=== PATIENT | male | born 1980 | race African-American/Black ===

== ENCOUNTER 2016-06-04 18:22 | Emergency (ER) | payer OTHER ==
[2016-06-04 18:51] LABS: BASO % 0.4 % (0.0-1.0); EOS # 0.1 K/mm3 (0.0-0.50); EOS % 2.4 % (0.0-3.0); LARGE UNSTAINED CELL # 0.1 K/mm3 (0.0-0.4); LARGE UNSTAINED CELL % 2.4 % (0.0-4.0); LYMPH # 1.6 K/mm3 (1.5-4.5); LYMPH % 27.5 % (24.0-44.0); MEAN CORPUSCULAR HEMOGLOBIN 27.3 pg (27.0-33.0); MEAN CORPUSCULAR HGB CONC 32.2 g/dl (32.0-36.5); MEAN CORPUSCULAR VOLUME 84.6 fl (80.0-96.0); MONO # 0.3 K/mm3 (0.0-0.8); MONO % 4.6 % (0.0-5.0); NEUTROPHILS # 3.7 K/mm3 (1.8-7.7); NEUTROPHILS % 62.8 % (36.0-66.0); PLATELET COUNT, AUTOMATED 203 k/mm3 (150-450); RED CELL DISTRIBUTION WIDTH 12.7 % (11.5-14.5)
[2016-06-04 19:17] LABS: ANION GAP 5 MEQ/L (8-16); BLOOD UREA NITROGEN 11 MG/DL (7-18); CALCIUM LEVEL 8.8 MG/DL (8.5-10.1); CARBON DIOXIDE LEVEL 30 MEQ/L (21-32); CHLORIDE LEVEL 107 MEQ/L (98-107); CREATININE FOR GFR 0.95 MG/DL (0.70-1.30); GLOMERULAR FILTRATION RATE > 60.0 (>60); GLUCOSE, FASTING 80 MG/DL (70-105); POTASSIUM SERUM 3.9 MEQ/L (3.5-5.1); SODIUM LEVEL 142 MEQ/L (136-145)
[2016-06-04] MEDS ORDERED: ISOVUE-370 76% 100ML VIAL (Q9967) As Ordered ONE ×2 (21:44→21:46)
--- NOTE | 2016-06-04 23:00 | REPUSA ---
CLINICAL HISTORY: Chest pain. TECHNIQUE: CT chest with IV contrast. COMPARISON: No pertinent prior studies are available at this time. CT CHEST WITH CONTRAST: Pulmonary arteries: Patent, without emboli. Lungs: No pneumothorax, infiltrate, masses or effusion. Heart: Normal size. No significant effusion. Aorta: Normal caliber, without aneurysm or dissection. Mediastinum and baudilio: No lymphadenopathy. Bony thorax: No acute findings. Limited upper abdomen: No acute findings. IMPRESSION: No evidence of pulmonary embolism. No acute thoracic process.
--- NOTE | 2016-06-05 01:06 | ECGEPIP ---
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
--- NOTE | 2016-06-05 02:44 | EDDOCDS ---
Nurse's Notes [facility] Name: Vangie Warren Age: 35 yrs Sex: Male : 1980 Arrival Date: 06/04/2016 Time: 18:22 Bed OBSERVATION Private MD: Diagnosis: Chest pain, unspecified Presentation: 06/04 18:24 Presenting complaint: EMS states: Chest pain x 3 hours, reports pain is reproducible. ead RN at [facility] reported EKG changes, pt was given 750 mg Aspirin. 20 gauge to left AC per EMS. Pt now rating chest pain at 5/10. Initial chest pain was 7/10. Blood glucose of 63. 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 Adult Sepsis Screening: The patient does not have new or worsening altered mentation. Patient's respiratory rate is less than 22. Systolic blood pressure is greater than 100. Patient has a qSOFA score of 0- Negative Sepsis Screen. Suicide/Homicide risk assessment- the patient denies having any suicidal and/or homicidal ideations and does not present with any other emotional, behavioral or mental health complaints. 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 Transition of care: patient was not received from another setting of care. 18:24 Acuity: RUSSELL Level 3 ead 18:24 Method Of Arrival: Ambulance ead Triage Assessment: 18:32 General: Appears in no apparent distress, comfortable, Behavior is appropriate for age, ead cooperative. Pain: Location: chest Pain currently is 5 out of 10 on a pain scale. The patient is triaged at the bedside. See Assessment in Nurses Notes section of ED record. Neurological: No deficits noted. Neurological: Reports dizziness. Cardiovascular: Capillary refill < 3 seconds Chest pain is described as Pain is 5 out of 10 on a pain scale. radiates forehead. Respiratory: Airway is patent Respiratory effort is even, unlabored, Denies shortness of breath. Derm: Skin is dry, Skin is normal. 06/05 02:43 Cardiovascular: Chest pain episodes last > 5 minutes. jp6 02:43 Pt Declines HIV testing. jp6 02:43 Cardiovascular: Chest pain began 30 minutes prior to arrival. jp6 Historical: - Allergies: no known allergies; - Home Meds: 1. enalapril maleate 5 mg Oral tab once daily 2. hydrochlorothiazide 25 mg Oral tab once daily - PMHx: Hypertension; cardiomegaly; - Social history: Smoking status: Patient uses tobacco products, current every day smoker. No barriers to communication noted, The patient speaks fluent [place] Citizen, Speaks appropriately for age. - Family history: Not pertinent. - : The pt / caregiver states he / she is not on anticoagulants. Home medication list is obtained from the patient, the facility MAR. - Exposure Risk Screening:: None identified. Screenin/28 19:04 Screening information is obtained from the patient. Fall risk: No risks identified. jp6 Assistance ADL's: requires no assistance with activities of daily living. Abuse/DV Screen: The patient / caregiver reports he/she is: not in a situation that causes fear, pain or injury. Nutritional screening: No deficits noted. Advance Directives: Currently, there is no health care proxy. There is no active DNR order. There is no living will. home support is adequate. Assessment: 18:44 General: see triage assessment. ead 19:23 Reassessment: Patient appears in no apparent distress at this time. Patient denies pain jp6 at this time. Patient states feeling better. Patient states symptoms have improved. General: Appears in no apparent distress, comfortable, well developed, well nourished, Behavior is appropriate for age, cooperative, pleasant. Pain: Denies pain. Neurological: No deficits noted. Level of Consciousness is awake, alert, Oriented to person, place, time. EENT: No deficits noted. Cardiovascular: No deficits noted. Capillary refill < 3 seconds Heart tones S1 S2 present Rhythm is sinus rhythm No ectopy. Respiratory: No deficits noted. Airway is patent Respiratory effort is even, unlabored, Respiratory pattern is regular, symmetrical, Breath sounds are clear bilaterally. GI: No deficits noted. : No deficits noted. Derm: Skin is intact, Skin is dry, Skin is brown, Skin temperature is warm. Musculoskeletal: No deficits noted. 20:30 Reassessment: Patient appears in no apparent distress at this time. Pain: Denies pain. jp6 Neurological: Level of Consciousness is awake, alert, Oriented to person, place, time. Cardiovascular: Rhythm is sinus rhythm No ectopy. Respiratory: Airway is patent Respiratory effort is even, unlabored, Respiratory pattern is regular, symmetrical. Derm: Skin is brown. 21:30 Reassessment: Patient appears in no apparent distress at this time. Patient states jp6 symptoms have improved. Pain: Denies pain. 22:30 Reassessment: Patient appears in no apparent distress at this time. Pain: Denies pain. jp6 Neurological: No deficits noted. EENT: No deficits noted. Cardiovascular: No deficits noted. Rhythm is sinus rhythm No ectopy. Respiratory: Airway is patent Respiratory effort is even, unlabored, Respiratory pattern is regular, symmetrical. GI: No deficits noted. : No deficits noted. Derm: Skin is brown. Musculoskeletal: No deficits noted. 23:30 Reassessment: Patient appears in no apparent distress at this time. jp6 06/05 00:30 Reassessment: Patient appears in no apparent distress at this time. Patient states jp6 symptoms have improved. General: Appears in no apparent distress, comfortable, Behavior is appropriate for age, cooperative. Pain: Denies pain. Neurological: No deficits noted. EENT: No deficits noted. Cardiovascular: Rhythm is sinus rhythm No ectopy. Respiratory: Breath sounds are clear bilaterally. Derm: Skin is brown. 01:30 Reassessment: Patient states symptoms have improved. Cardiovascular: Rhythm is sinus [facility] rhythm No ectopy. Respiratory: Airway is patent Respiratory effort is even, unlabored, Respiratory pattern is regular, symmetrical. 02:30 Reassessment: pt is going back to [facility],reportcalled to angi George RN.. General: Appears in no apparent distress, comfortable. Pain: Denies pain. Neurological: No deficits noted. EENT: No deficits noted. Cardiovascular: Rhythm is sinus rhythm No ectopy. Respiratory: No deficits noted. Airway is patent Respiratory effort is even, unlabored, Respiratory pattern is regular, symmetrical. GI: No deficits noted. : No deficits noted. Derm: Skin is brown. Musculoskeletal: No deficits noted. Vital Signs: 06/04 18:32 BP 150 / 92; Pulse 52; Resp 14; Temp 97.1; Pulse Ox 97% on R/A; Weight 78.02 kg (R); ead Height 5 ft. 5 in. (165.10 cm) (R); Pain 5/10; 19:04 BP 149 / 93 (auto/); jp6 19:04 Pulse 50 MON; Pulse Ox 98% ; jp6 19:34 BP 151 / 95 (auto/); jp6 19:34 Pulse 48 MON; Pulse Ox 98% ; jp6 20:03 Pulse 54 MON; Pulse Ox 98% ; jp6 20:04 BP 145 / 86 (auto/); jp6 20:34 BP 148 / 89 (auto/); jp6 20:34 Pulse 52 MON; Pulse Ox 99% ; jp6 21:04 BP 148 / 89 (auto/); jp6 21:04 Pulse 52 MON; Pulse Ox 98% ; jp6 21:34 BP 157 / 94 (auto/); jp6 21:34 Pulse 52 MON; Pulse Ox 99% ; jp6 22:21 BP 125 / 98 (auto/); jp6 22:23 Pulse 64 MON; jp6 22:34 BP 152 / 96 (auto/); jp6 22:34 Pulse 66 MON; jp6 23:04 BP 149 / 89 (auto/); jp6 23:04 Pulse 64 MON; jp6 23:34 BP 155 / 100 (auto/); jp6 23:34 Pulse 76 MON; jp6 06/05 00:04 BP 150 / 87 (auto/); jp6 00:04 Pulse 68 MON; jp6 00:34 BP 128 / 77 (auto/); jp6 00:52 Pulse 54 MON; Pulse Ox 98% ; jp6 01:02 Pulse 70 MON; Pulse Ox 97% ; jp6 01:04 BP 140 / 88 (auto/); jp6 01:34 BP 150 / 71 (auto/); jp6 01:34 Pulse 76 MON; jp6 02:04 BP 138 / 77 (auto/); jp6 02:04 Pulse 66 MON; jp6 02:16 Pulse 60 MON; jp6 02:16 BP 128 / 77; Pulse 60; Resp 16; Temp 98.2(O); Pulse Ox 98% on R/A; Pain 0/10; jp6 06/04 18:32 Body Mass Index 28.62 (78.02 kg, 165.10 cm) ead Vitals: 06/04 18:22 Log In Time N/A - ambulance arrival. ead ED Course: 18:23 Patient visited by Dagmar Winter, Freight Loading Supervisor. deg 18:23 Patient moved to Waiting deg 18:24 Francesca Givens,RN is Primary Nurse. deg 18:24 Patient moved to 3 deg 18:24 Patient moved to 10 ead 18:29 Triage Initiated ead 18:36 Maintain field IV. Dressing intact. Good blood return noted. Site clean & dry. Gauge & ead site: 20 left AC. 18:38 EKG done. (by ED staff). Reviewed by Radha Harris MD. jrd 18:44 Patient visited by Francesca Givens,RN. ead 18:44 Basic Metabolic Profile Sent. ead 18:44 CBC with Diff Sent. ead 18:44 Cardiac Injury Profile Sent. ead 18:44 Troponin Sent. ead 18:52 Radha Harris MD is Attending Physician. br1 18:52 Patient visited by Alfonzo Rock PCA. jrd 18:58 Patient visited by Radha Harris MD. br1 19:04 The patient / caregiver is instructed regarding the plan of care and ED course. Cardiac jp6 monitor on. Pulse ox on. NIBP on. 20:06 Patient visited by Vicky Ramsay,RN. jp6 21:33 Patient visited by Vicky Ramsay,RN. jp6 22:51 Patient visited by Vicky Ramsay,LORE. jp6 22:58 [facility] [place] into [employer] and attached to record. zo 22:58 [facility] [place] into [employer] and attached to record. zo 23:03 Patient name changed from Vangie\S\\S\Hackshaw\S\ to Vangie\S\ \S\Hackshaw. EDMS 23:11 Patient moved to OBSERVATION br1 23:34 No procedures done that require assistance. jp6 23:37 CT Chest Angio R/O PE Returned. EDMS 06/05 00:08 Attending Physician role handed off by Radha Harris MD mm11 00:08 Carlitos Newman DO is Attending Physician. mm11 01:00 CARDIAC INJURY PROFILE Sent. jp6 01:00 TROPONIN Sent. jp6 01:17 ELECTROCARDIOGRAM ADULT Returned. EDMS 02:19 Your own Physician is Referral Physician. mm11 02:19 Reese Pinedo MD is Referral Physician. mm11 Administered Medications: 06/04 20:23 Drug: NS 0.9% 1000 ml [sodium chloride 0.9 % intravenous solution] Route: IV; Rate: 150 tm5 mL/hr; Site: left antecubital; Intake: 06/05 02:16 PO: 300.00ml; IV: 500.00ml; Total: 800.00ml. jp6 Output: 02:16 Urine: 3.00ml (Voided); Total: 3.00ml. jp6 Order Results: Lab Order: Basic Metabolic Profile; SPEC'M 06/04/16 18:43 Test: GLUCOSE, FASTING; Value: 80; Range: 70-105; Units: MG/DL; Status: F Test: BLOOD UREA NITROGEN; Value: 11; Range: 7-18; Units: MG/DL; Status: F Test: CREATININE FOR GFR; Value: 0.95; Range: 0.70-1.30; Units: MG/DL; Status: F Test: GLOMERULAR FILTRATION RATE; Value: > 60.0; Range: >60; Status: F Test: SODIUM LEVEL; Value: 142; Range: 136-145; Units: MEQ/L; Status: F Test: POTASSIUM SERUM; Value: 3.9; Range: 3.5-5.1; Units: MEQ/L; Status: F Test: CHLORIDE LEVEL; Value: 107; Range: 98-107; Units: MEQ/L; Status: F Test: CARBON DIOXIDE LEVEL; Value: 30; Range: 21-32; Units: MEQ/L; Status: F Test: ANION GAP; Value: 5; Range: 8-16; Abnormal: Below low normal; Units: MEQ/L; Status: F Test: CALCIUM LEVEL; Value: 8.8; Range: 8.5-10.1; Units: MG/DL; Status: F Test Note: ; Units are mL/min/1.73 m2 Chronic Kidney Disease Staging per NKF: Stage I & II GFR >=60 Normal to Mildly Decreased Stage III GFR 30-59 Moderately Decreased Stage IV GFR 15-29 Severely Decreased Stage V GFR <15 Very Little GFR Left ESRD GFR <[address] Lab Order: CBC with Diff; SPEC'M 06/04/16 18:43 Test: WHITE BLOOD COUNT; Value: 6.0; Range: 4.0-10.0; Units: K/mm3; Status: F Test: RED BLOOD COUNT; Value: 4.84; Range: 4.30-6.10; Units: M/mm3; Status: F Test: HEMOGLOBIN; Value: 13.2; Range: 14.0-18.0; Abnormal: Below low normal; Units: g/dl; Status: F Test: HEMATOCRIT; Value: 41.0; Range: 42.0-52.0; Abnormal: Below low normal; Units: %; Status: F Test: MEAN CORPUSCULAR VOLUME; Value: 84.6; Range: 80.0-96.0; Units: fl; Status: F Test: MEAN CORPUSCULAR HEMOGLOBIN; Value: 27.3; Range: 27.0-33.0; Units: pg; Status: F Test: MEAN CORPUSCULAR HGB CONC; Value: 32.2; Range: 32.0-36.5; Units: g/dl; Status: F Test: RED CELL DISTRIBUTION WIDTH; Value: 12.7; Range: 11.5-14.5; Units: %; Status: F Test: PLATELET COUNT, AUTOMATED; Value: 203; Range: 150-450; Units: k/mm3; Status: F Test: NEUTROPHILS %; Value: 62.8; Range: 36.0-66.0; Units: %; Status: F Test: LYMPH %; Value: 27.5; Range: 24.0-44.0; Units: %; Status: F Test: MONO %; Value: 4.6; Range: 0.0-5.0; Units: %; Status: F Test: EOS %; Value: 2.4; Range: 0.0-3.0; Units: %; Status: F Test: BASO %; Value: 0.4; Range: 0.0-1.0; Units: %; Status: F Test: LARGE UNSTAINED CELL %; Value: 2.4; Range: 0.0-4.0; Units: %; Status: F Test: NEUTROPHILS #; Value: 3.7; Range: 1.8-7.7; Units: K/mm3; Status: F Test: LYMPH #; Value: 1.6; Range: 1.5-4.5; Units: K/mm3; Status: F Test: MONO #; Value: 0.3; Range: 0.0-0.8; Units: K/mm3; Status: F Test: EOS #; Value: 0.1; Range: 0.0-0.50; Units: K/mm3; Status: F Test: BASO #; Value: 0.0; Range: 0.0-0.2; Units: K/mm3; Status: F Test: LARGE UNSTAINED CELL #; Value: 0.1; Range: 0.0-0.4; Units: K/mm3; Status: F Lab Order: Cardiac Injury Profile; [facility] 06/04/16 18:43 Test: CPK CREATINE PHOSPHOKINASE; Value: 348; Range: 39-308; Abnormal: Above high normal; Units: U/L; Status: F Test: CK-MB VALUE MASS; Value: 6.1; Range: 0.0-3.6; Abnormal: Above high normal; Units: NG/ML; Status: F Test: MB/CK RELATIVE INDEX; Value: 1.75; Range: < OR =4; Status: F Test Note: ; DIAGNOSIS CRITERIA MMB ng/ml Relative Index (RI) NON-AMI < or = 5 N/A [place] > 5 < or = 4 AMI > 5 > 4 Lab Order: Troponin; [facility] 06/04/16 18:43 Test: TROPONIN I; Value: < 0.02; Range: < 0.10; Units: NG/ML; Status: F Test Note: ; Troponin I Reference Interval for [employer] LOCI: 99th Percentile= 0.00-0.045 ng/ml Risk Stratification: <= 0.10 ng/ml Decreased Risk for Adverse Clinical Events. 0.10-1.50 ng/ml Increased Risk for Adverse Clinical Events. Evaluation of additional criterion and/or repeat testing in 2-6 hours is suggested to rule out myocardial damage. >= 1.50 ng/ml Indicative of Myocardial Injury. Lab Order: TROPONIN; [facility] 06/05/16 00:53 Test: TROPONIN I; Value: < 0.02; Range: < 0.10; Units: NG/ML; Status: F Test Note: ; Troponin I Reference Interval for [employer] LOCI: 99th Percentile= 0.00-0.045 ng/ml Risk Stratification: <= 0.10 ng/ml Decreased Risk for Adverse Clinical Events. 0.10-1.50 ng/ml Increased Risk for Adverse Clinical Events. Evaluation of additional criterion and/or repeat testing in 2-6 hours is suggested to rule out myocardial damage. >= 1.50 ng/ml Indicative of Myocardial Injury. Lab Order: CARDIAC INJURY PROFILE; SPEC'M 06/05/16 00:53 Test: CPK CREATINE PHOSPHOKINASE; Value: 316; Range: 39-308; Abnormal: Above high normal; Units: U/L; Status: F Test: CK-MB VALUE MASS; Value: 4.9; Range: 0.0-3.6; Abnormal: Above high normal; Units: NG/ML; Status: F Test: MB/CK RELATIVE INDEX; Value: 1.55; Range: < OR =4; Status: F Test Note: ; DIAGNOSIS CRITERIA MMB ng/ml Relative Index (RI) NON-AMI < or = 5 N/A [place] > 5 < or = 4 AMI > 5 > 4 Radiology Order: CT Chest Angio R/O PE Test: CT Chest Angio R/O PE REASON FOR EXAMINATION: Chest Pain; ; CLINICAL HISTORY: Chest pain.; ; TECHNIQUE: CT chest with IV contrast.; ; COMPARISON: No pertinent prior studies are available at this time.; ; CT CHEST WITH CONTRAST:; Pulmonary arteries: Patent, without emboli.; Lungs: No pneumothorax, infiltrate, masses or effusion.; Heart: Normal size. No significant effusion.; Aorta: Normal caliber, without aneurysm or dissection.; Mediastinum and baudilio: No lymphadenopathy.; Bony thorax: No acute findings.; Limited upper abdomen: No acute findings.; IMPRESSION: No evidence of pulmonary embolism. 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 No cognitive and/or jp6 functional deficits noted. Patient verbalized understanding of disposition instructions. patient administered narcotics - no. The following High Risk Discharge criteria are identified: None. Discharged to [facility]. Condition: stable Condition: improved. Discharge instructions given to Doris TORREZ at facility. CT Study completed. Property :Personal belongings accompany Pt. 02:19 Discharge ordered by Provider. mm11 02:43 Patient left the ED. jp6 Signatures: Dispatcher [employer] EDMS Dagmar Winter, Freight Loading Supervisor Unit deg Darline Moeller Matthew, DO DO mm11 Radha Harris MD MD br1 Francesca Givens,RN RN Alfonzo Lopez PCA DETECTIVE AUTOMOBILE SECTION Vicky Odell,RN RN jp6 Michelle Sharif,RN RN tm5 GARDENIAD
--- NOTE | 2016-06-05 02:44 | EDDOCDS ---
Physician Documentation [facility] Name: Jake Butler Age: 35 yrs Sex: Male : 1980 Arrival Date: 06/04/2016 Time: 18:22 Bed OBSERVATION Private MD: Disposition: 06/05/16 02:19 Discharged to Home/Self Care. Impression: Chest pain, unspecified. - Condition is Stable. - Discharge Instructions: Nonspecific Chest Pain. - Medication Reconciliation, Local Pharmacy Hours form. - Follow up: Your own Physician; When: 2 - 3 days; Reason: Recheck today's complaints. Follow up: Reese Pinedo; When: 2 - 3 days; Reason: Recheck today's complaints. - Problem is an acute exacerbation. - Symptoms are resolved. - Notes: You were seen in the ED for chest pain. Bloodwork along with EKG of the heart, chest Xray, CT scan of the chest, and cardiac monitoring showed no acute findings. As you are feeling better you may return to the correctional facility to see your physician within 1-2 days for follow up and will also need to follow up with cardiology - please call to arrange to be seen.
Return to the ED for any return of chest pain, trouble breathing, lightheadedness, loss of consciousness or any other concerns. Historical: - Allergies: no known allergies; - Home Meds: 1. enalapril maleate 5 mg Oral tab once daily 2. hydrochlorothiazide 25 mg Oral tab once daily - PMHx: Hypertension; cardiomegaly; - Social history: Smoking status: Patient uses tobacco products, current every day smoker. No barriers to communication noted, The patient speaks fluent Estonian, Speaks appropriately for age. - Family history: Not pertinent. - : The pt / caregiver states he / she is not on anticoagulants. Home medication list is obtained from the patient, the facility MAR. - Exposure Risk Screening:: None identified. Vital Signs: 06/04 18:32 BP 150 / 92; Pulse 52; Resp 14; Temp 97.1; Pulse Ox 97% on R/A; Weight 78.02 kg / 172 ead lbs (R); Height 5 ft. 5 in. (165.10 cm) (R); Pain 5/10; 19:04 BP 149 / 93 (auto/); jp6 19:04 Pulse 50 MON; Pulse Ox 98% ; jp6 19:34 BP 151 / 95 (auto/); jp6 19:34 Pulse 48 MON; Pulse Ox 98% ; jp6 20:03 Pulse 54 MON; Pulse Ox 98% ; jp6 20:04 BP 145 / 86 (auto/); jp6 20:34 BP 148 / 89 (auto/); jp6 20:34 Pulse 52 MON; Pulse Ox 99% ; jp6 21:04 BP 148 / 89 (auto/); jp6 21:04 Pulse 52 MON; Pulse Ox 98% ; jp6 21:34 BP 157 / 94 (auto/); jp6 21:34 Pulse 52 MON; Pulse Ox 99% ; jp6 22:21 BP 125 / 98 (auto/); jp6 22:23 Pulse 64 MON; jp6 22:34 BP 152 / 96 (auto/); jp6 22:34 Pulse 66 MON; jp6 23:04 BP 149 / 89 (auto/); jp6 23:04 Pulse 64 MON; jp6 23:34 BP 155 / 100 (auto/); jp6 23:34 Pulse 76 MON; jp6 06/05 00:04 BP 150 / 87 (auto/); jp6 00:04 Pulse 68 MON; jp6 00:34 BP 128 / 77 (auto/); jp6 00:52 Pulse 54 MON; Pulse Ox 98% ; jp6 01:02 Pulse 70 MON; Pulse Ox 97% ; jp6 01:04 BP 140 / 88 (auto/); jp6 01:34 BP 150 / 71 (auto/); jp6 01:34 Pulse 76 MON; jp6 02:04 BP 138 / 77 (auto/); jp6 02:04 Pulse 66 MON; jp6 02:16 Pulse 60 MON; jp6 02:16 BP 128 / 77; Pulse 60; Resp 16; Temp 98.2(O); Pulse Ox 98% on R/A; Pain 0/10; jp6 06/04 18:32 Body Mass Index 28.62 (78.02 kg, 165.10 cm) ead MDM: 06/04 18:33 ECG WITH READING ER PHYS+CARDIAG ordered. EDMS 18:36 Financial Management Analyst/Pulse Ox/q 30 min VS ordered. br1 18:36 IV Saline Lock ordered. br1 18:36 Rhythm Strip to chart ordered. br1 18:36 Undress patient appropriately for examination ordered. br1 18:37 Basic Metabolic Profile Ordered. EDMS 18:37 CBC with Diff Ordered. EDMS 18:37 Cardiac Injury Profile Ordered. EDMS 18:37 Troponin Ordered. EDMS 18:41 Chest, 1 View Ordered. EDMS 19:13 CBC with Diff Reviewed. br1 19:36 Basic Metabolic Profile Reviewed. br1 19:36 Cardiac Injury Profile Reviewed. br1 19:36 Troponin Reviewed. br1 19:40 NS 0.9% 1000 ml IV at 150 mL/hr continuous ordered. br1 19:41 CT Chest Angio R/O PE Ordered. EDMS 22:43 Financial registration complete. zo 22:58 [facility] Payment Agreement was scanned into [employer] and attached to record. zo 22:58 [facility] Payment Agreement was scanned into [employer] and attached to record. zo 23:03 Repeat EKG (put time details section) ordered. br1 23:03 Redraw CIP &Troponin (put time in details section) ordered. br1 23:08 Misc. Nursing Order ordered. br1 06/05 00:13 Redraw CIP &Troponin (put time in details section) complete. jlm 00:13 Repeat EKG (put time details section) complete. jlm 00:14 ELECTROCARDIOGRAM ADULT ordered. EDMS 00:14 TROPONIN Ordered. EDMS 00:14 CARDIAC INJURY PROFILE Ordered. EDMS 02:07 CARDIAC INJURY PROFILE Reviewed. mm11 02:07 TROPONIN Reviewed. mm11 02:07 CT Chest Angio R/O PE Reviewed. mm11 02:07 ELECTROCARDIOGRAM ADULT Reviewed. mm11 Administered Medications: 06/04 20:23 Drug: NS 0.9% 1000 ml [sodium chloride 0.9 % intravenous solution] Route: IV; Rate: 150 tm5 mL/hr; Site: left antecubital; Signatures: Dispatcher [employer] EDMS Darline Moeller Matthew, DO DO mm11 Chema Harris MD MD br1 Francesca Givens,RN RN Avelina Nicole, Instrument Technologist Unit Vicky Armando RN RN jp6 Michelle Sharif RN tm5 The chart was reviewed and I authenticate all verbal orders and agree with the evaluation and treatment provided.Attachments: 22:58 [facility] Payment Agreement zo MTDD
--- NOTE | 2016-06-05 15:43 | ECGEPIP ---
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
--- NOTE | 2016-06-06 11:13 | REP ---
Portable chest, single AP view, patient sitting: There are no comparisons. The lung pate are clear. Cardiac size appears enlarged, however there has magnification from portable positioning. The baudilio, mediastinum, and bony thorax are unremarkable. Impression: The cardiac size appears enlarged. The lung pate are clear. Signed by Julien Renteria MD 06/05/2016 11:13 A
--- NOTE | 2016-06-07 03:44 | EDDOCDS ---
Physician Documentation [facility] Name: Jake Butler Age: 35 yrs Sex: Male : 1980 Arrival Date: 06/04/2016 Time: 18:22 Bed OBSERVATION Private MD: Disposition: 06/05/16 02:19 Discharged to Home/Self Care. Impression: Chest pain, unspecified. - Condition is Stable. - Discharge Instructions: Nonspecific Chest Pain. - Medication Reconciliation, Local Pharmacy Hours form. - Follow up: Your own Physician; When: 2 - 3 days; Reason: Recheck today's complaints. Follow up: Reese Pinedo; When: 2 - 3 days; Reason: Recheck today's complaints. - Problem is an acute exacerbation. - Symptoms are resolved. - Notes: You were seen in the ED for chest pain. Bloodwork along with EKG of the heart, chest Xray, CT scan of the chest, and cardiac monitoring showed no acute findings. As you are feeling better you may return to the correctional facility to see your physician within 1-2 days for follow up and will also need to follow up with cardiology - please call to arrange to be seen.
Return to the ED for any return of chest pain, trouble breathing, lightheadedness, loss of consciousness or any other concerns. Historical: - Allergies: no known allergies; - Home Meds: 1. enalapril maleate 5 mg Oral tab once daily 2. hydrochlorothiazide 25 mg Oral tab once daily - PMHx: Hypertension; cardiomegaly; - Social history: Smoking status: Patient uses tobacco products, current every day smoker. No barriers to communication noted, The patient speaks fluent Tajik, Speaks appropriately for age. - Family history: Not pertinent. - : The pt / caregiver states he / she is not on anticoagulants. Home medication list is obtained from the patient, the facility MAR. - Exposure Risk Screening:: None identified. Vital Signs: 06/04 18:32 BP 150 / 92; Pulse 52; Resp 14; Temp 97.1; Pulse Ox 97% on R/A; Weight 78.02 kg / 172 ead lbs (R); Height 5 ft. 5 in. (165.10 cm) (R); Pain 5/10; 19:04 BP 149 / 93 (auto/); jp6 19:04 Pulse 50 MON; Pulse Ox 98% ; jp6 19:34 BP 151 / 95 (auto/); jp6 19:34 Pulse 48 MON; Pulse Ox 98% ; jp6 20:03 Pulse 54 MON; Pulse Ox 98% ; jp6 20:04 BP 145 / 86 (auto/); jp6 20:34 BP 148 / 89 (auto/); jp6 20:34 Pulse 52 MON; Pulse Ox 99% ; jp6 21:04 BP 148 / 89 (auto/); jp6 21:04 Pulse 52 MON; Pulse Ox 98% ; jp6 21:34 BP 157 / 94 (auto/); jp6 21:34 Pulse 52 MON; Pulse Ox 99% ; jp6 22:21 BP 125 / 98 (auto/); jp6 22:23 Pulse 64 MON; jp6 22:34 BP 152 / 96 (auto/); jp6 22:34 Pulse 66 MON; jp6 23:04 BP 149 / 89 (auto/); jp6 23:04 Pulse 64 MON; jp6 23:34 BP 155 / 100 (auto/); jp6 23:34 Pulse 76 MON; jp6 06/05 00:04 BP 150 / 87 (auto/); jp6 00:04 Pulse 68 MON; jp6 00:34 BP 128 / 77 (auto/); jp6 00:52 Pulse 54 MON; Pulse Ox 98% ; jp6 01:02 Pulse 70 MON; Pulse Ox 97% ; jp6 01:04 BP 140 / 88 (auto/); jp6 01:34 BP 150 / 71 (auto/); jp6 01:34 Pulse 76 MON; jp6 02:04 BP 138 / 77 (auto/); jp6 02:04 Pulse 66 MON; jp6 02:16 Pulse 60 MON; jp6 02:16 BP 128 / 77; Pulse 60; Resp 16; Temp 98.2(O); Pulse Ox 98% on R/A; Pain 0/10; jp6 06/04 18:32 Body Mass Index 28.62 (78.02 kg, 165.10 cm) ead MDM: 06/04 18:33 ECG WITH READING ER PHYS+CARDIAG ordered. EDMS 18:36 Counter Person/Pulse Ox/q 30 min VS ordered. br1 18:36 IV Saline Lock ordered. br1 18:36 Rhythm Strip to chart ordered. br1 18:36 Undress patient appropriately for examination ordered. br1 18:37 Basic Metabolic Profile Ordered. EDMS 18:37 CBC with Diff Ordered. EDMS 18:37 Cardiac Injury Profile Ordered. EDMS 18:37 Troponin Ordered. EDMS 18:41 Chest, 1 View Ordered. EDMS 19:13 CBC with Diff Reviewed. br1 19:36 Basic Metabolic Profile Reviewed. br1 19:36 Cardiac Injury Profile Reviewed. br1 19:36 Troponin Reviewed. br1 19:40 NS 0.9% 1000 ml IV at 150 mL/hr continuous ordered. br1 19:41 CT Chest Angio R/O PE Ordered. EDMS 22:43 Financial registration complete. zo 22:58 [facility] Payment Agreement was scanned into [employer] and attached to record. zo 22:58 [facility] Payment Agreement was scanned into [employer] and attached to record. zo 23:03 Repeat EKG (put time details section) ordered. br1 23:03 Redraw CIP &Troponin (put time in details section) ordered. br1 23:08 Misc. Nursing Order ordered. br1 06/05 00:13 Redraw CIP &Troponin (put time in details section) complete. jlm 00:13 Repeat EKG (put time details section) complete. jlm 00:14 ELECTROCARDIOGRAM ADULT ordered. EDMS 00:14 TROPONIN Ordered. EDMS 00:14 CARDIAC INJURY PROFILE Ordered. EDMS 02:07 CARDIAC INJURY PROFILE Reviewed. mm11 02:07 TROPONIN Reviewed. mm11 02:07 CT Chest Angio R/O PE Reviewed. mm11 02:07 ELECTROCARDIOGRAM ADULT Reviewed. mm11 19:43 Radiology Report was scanned into [employer] and attached to record. kf3 19:44 ECG/EKG was scanned into [employer] and attached to record. kf3 19:45 Trend VS was scanned into [employer] and attached to record. kf3 20:22 T-Sheet-- Draft Copy was scanned into [employer] and attached to record. klr Administered Medications: 06/04 20:23 Drug: NS 0.9% 1000 ml [sodium chloride 0.9 % intravenous solution] Route: IV; Rate: 150 tm5 mL/hr; Site: left antecubital; Signatures: Dispatcher [employer] EDMS Darline Moeller Matthew, DO DO mm11 Anatoly Moses, Reg Reg kf3 Chema Harris MD MD br1 Francesca GivensRN RN Avelina Nicole, Pain Management Physician Unit Vicky Armando RN RN jp6 Yudi Jose Tonya RN tm5 The chart was reviewed and I authenticate all verbal orders and agree with the evaluation and treatment provided.Attachments: 22:58 [facility] [place] Payment Agreement zo 19:44 ECG/EKG kf3 20:22 T-Sheet-- Draft Copy klr Chart Complete MTDD
--- NOTE | 2016-06-07 03:44 | EDDOCDS ---
Physician Documentation [facility] Name: Jake Butler Age: 35 yrs Sex: Male : 1980 Arrival Date: 06/04/2016 Time: 18:22 Bed OBSERVATION Private MD: Disposition: 06/05/16 02:19 Discharged to Home/Self Care. Impression: Chest pain, unspecified. - Condition is Stable. - Discharge Instructions: Nonspecific Chest Pain. - Medication Reconciliation, Local Pharmacy Hours form. - Follow up: Your own Physician; When: 2 - 3 days; Reason: Recheck today's complaints. Follow up: Reese Pinedo; When: 2 - 3 days; Reason: Recheck today's complaints. - Problem is an acute exacerbation. - Symptoms are resolved. - Notes: You were seen in the ED for chest pain. Bloodwork along with EKG of the heart, chest Xray, CT scan of the chest, and cardiac monitoring showed no acute findings. As you are feeling better you may return to the correctional facility to see your physician within 1-2 days for follow up and will also need to follow up with cardiology - please call to arrange to be seen.
Return to the ED for any return of chest pain, trouble breathing, lightheadedness, loss of consciousness or any other concerns. Historical: - Allergies: no known allergies; - Home Meds: 1. enalapril maleate 5 mg Oral tab once daily 2. hydrochlorothiazide 25 mg Oral tab once daily - PMHx: Hypertension; cardiomegaly; - Social history: Smoking status: Patient uses tobacco products, current every day smoker. No barriers to communication noted, The patient speaks fluent Wolof, Speaks appropriately for age. - Family history: Not pertinent. - : The pt / caregiver states he / she is not on anticoagulants. Home medication list is obtained from the patient, the facility MAR. - Exposure Risk Screening:: None identified. Vital Signs: 06/04 18:32 BP 150 / 92; Pulse 52; Resp 14; Temp 97.1; Pulse Ox 97% on R/A; Weight 78.02 kg / 172 ead lbs (R); Height 5 ft. 5 in. (165.10 cm) (R); Pain 5/10; 19:04 BP 149 / 93 (auto/); jp6 19:04 Pulse 50 MON; Pulse Ox 98% ; jp6 19:34 BP 151 / 95 (auto/); jp6 19:34 Pulse 48 MON; Pulse Ox 98% ; jp6 20:03 Pulse 54 MON; Pulse Ox 98% ; jp6 20:04 BP 145 / 86 (auto/); jp6 20:34 BP 148 / 89 (auto/); jp6 20:34 Pulse 52 MON; Pulse Ox 99% ; jp6 21:04 BP 148 / 89 (auto/); jp6 21:04 Pulse 52 MON; Pulse Ox 98% ; jp6 21:34 BP 157 / 94 (auto/); jp6 21:34 Pulse 52 MON; Pulse Ox 99% ; jp6 22:21 BP 125 / 98 (auto/); jp6 22:23 Pulse 64 MON; jp6 22:34 BP 152 / 96 (auto/); jp6 22:34 Pulse 66 MON; jp6 23:04 BP 149 / 89 (auto/); jp6 23:04 Pulse 64 MON; jp6 23:34 BP 155 / 100 (auto/); jp6 23:34 Pulse 76 MON; jp6 06/05 00:04 BP 150 / 87 (auto/); jp6 00:04 Pulse 68 MON; jp6 00:34 BP 128 / 77 (auto/); jp6 00:52 Pulse 54 MON; Pulse Ox 98% ; jp6 01:02 Pulse 70 MON; Pulse Ox 97% ; jp6 01:04 BP 140 / 88 (auto/); jp6 01:34 BP 150 / 71 (auto/); jp6 01:34 Pulse 76 MON; jp6 02:04 BP 138 / 77 (auto/); jp6 02:04 Pulse 66 MON; jp6 02:16 Pulse 60 MON; jp6 02:16 BP 128 / 77; Pulse 60; Resp 16; Temp 98.2(O); Pulse Ox 98% on R/A; Pain 0/10; jp6 06/04 18:32 Body Mass Index 28.62 (78.02 kg, 165.10 cm) ead MDM: 06/04 18:33 ECG WITH READING ER PHYS+CARDIAG ordered. EDMS 18:36 Operations Technician/Pulse Ox/q 30 min VS ordered. br1 18:36 IV Saline Lock ordered. br1 18:36 Rhythm Strip to chart ordered. br1 18:36 Undress patient appropriately for examination ordered. br1 18:37 Basic Metabolic Profile Ordered. EDMS 18:37 CBC with Diff Ordered. EDMS 18:37 Cardiac Injury Profile Ordered. EDMS 18:37 Troponin Ordered. EDMS 18:41 Chest, 1 View Ordered. EDMS 19:13 CBC with Diff Reviewed. br1 19:36 Basic Metabolic Profile Reviewed. br1 19:36 Cardiac Injury Profile Reviewed. br1 19:36 Troponin Reviewed. br1 19:40 NS 0.9% 1000 ml IV at 150 mL/hr continuous ordered. br1 19:41 CT Chest Angio R/O PE Ordered. EDMS 22:43 Financial registration complete. zo 22:58 [facility] Payment Agreement was scanned into [employer] and attached to record. zo 22:58 [facility] Payment Agreement was scanned into [employer] and attached to record. zo 23:03 Repeat EKG (put time details section) ordered. br1 23:03 Redraw CIP &Troponin (put time in details section) ordered. br1 23:08 Misc. Nursing Order ordered. br1 06/05 00:13 Redraw CIP &Troponin (put time in details section) complete. jlm 00:13 Repeat EKG (put time details section) complete. jlm 00:14 ELECTROCARDIOGRAM ADULT ordered. EDMS 00:14 TROPONIN Ordered. EDMS 00:14 CARDIAC INJURY PROFILE Ordered. EDMS 02:07 CARDIAC INJURY PROFILE Reviewed. mm11 02:07 TROPONIN Reviewed. mm11 02:07 CT Chest Angio R/O PE Reviewed. mm11 02:07 ELECTROCARDIOGRAM ADULT Reviewed. mm11 19:43 Radiology Report was scanned into [employer] and attached to record. kf3 19:44 ECG/EKG was scanned into [employer] and attached to record. kf3 19:45 Trend VS was scanned into [employer] and attached to record. kf3 20:22 T-Sheet-- Draft Copy was scanned into [employer] and attached to record. klr Administered Medications: 06/04 20:23 Drug: NS 0.9% 1000 ml [sodium chloride 0.9 % intravenous solution] Route: IV; Rate: 150 tm5 mL/hr; Site: left antecubital; Signatures: Dispatcher [employer] EDMS Darline Moeller Matthew, DO DO mm11 Anatoly Moses, Reg Reg kf3 Chema Harris MD MD br1 Francesca GivensRN RN Avelina Nicole, Volcanologist Unit Vicky Armando RN RN jp6 Yudi Jose Tonya RN tm5 The chart was reviewed and I authenticate all verbal orders and agree with the evaluation and treatment provided.Attachments: 22:58 [facility] [place] Payment Agreement zo 19:44 ECG/EKG kf3 20:22 T-Sheet-- Draft Copy klr Chart Complete MTDD
--- NOTE | 2016-06-07 03:44 | EDDOCDS ---
Nurse's Notes [facility] Name: Vangie Warren Age: 35 yrs Sex: Male : 1980 Arrival Date: 06/04/2016 Time: 18:22 Bed OBSERVATION Private MD: Diagnosis: Chest pain, unspecified Presentation: 06/04 18:24 Presenting complaint: EMS states: Chest pain x 3 hours, reports pain is reproducible. ead RN at [facility] reported EKG changes, pt was given 750 mg Aspirin. 20 gauge to left AC per EMS. Pt now rating chest pain at 5/10. Initial chest pain was 7/10. Blood glucose of 63. 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 Adult Sepsis Screening: The patient does not have new or worsening altered mentation. Patient's respiratory rate is less than 22. Systolic blood pressure is greater than 100. Patient has a qSOFA score of 0- Negative Sepsis Screen. Suicide/Homicide risk assessment- the patient denies having any suicidal and/or homicidal ideations and does not present with any other emotional, behavioral or mental health complaints. Status: Patient is not a rehabilitation services director or dependent. Transition of care: patient was not received from another setting of care. 18:24 Acuity: RUSSELL Level 3 ead 18:24 Method Of Arrival: Ambulance ead Triage Assessment: 18:32 General: Appears in no apparent distress, comfortable, Behavior is appropriate for age, ead cooperative. Pain: Location: chest Pain currently is 5 out of 10 on a pain scale. The patient is triaged at the bedside. See Assessment in Nurses Notes section of ED record. Neurological: No deficits noted. Neurological: Reports dizziness. Cardiovascular: Capillary refill < 3 seconds Chest pain is described as Pain is 5 out of 10 on a pain scale. radiates forehead. Respiratory: Airway is patent Respiratory effort is even, unlabored, Denies shortness of breath. Derm: Skin is dry, Skin is normal. 06/05 02:43 Cardiovascular: Chest pain episodes last > 5 minutes. jp6 02:43 Pt Declines HIV testing. jp6 02:43 Cardiovascular: Chest pain began 30 minutes prior to arrival. jp6 Historical: - Allergies: no known allergies; - Home Meds: 1. enalapril maleate 5 mg Oral tab once daily 2. hydrochlorothiazide 25 mg Oral tab once daily - PMHx: Hypertension; cardiomegaly; - Social history: Smoking status: Patient uses tobacco products, current every day smoker. No barriers to communication noted, The patient speaks fluent Croatian, Speaks appropriately for age. - Family history: Not pertinent. - : The pt / caregiver states he / she is not on anticoagulants. Home medication list is obtained from the patient, the facility MAR. - Exposure Risk Screening:: None identified. Screenin/28 19:04 Screening information is obtained from the patient. Fall risk: No risks identified. jp6 Assistance ADL's: requires no assistance with activities of daily living. Abuse/DV Screen: The patient / caregiver reports he/she is: not in a situation that causes fear, pain or injury. Nutritional screening: No deficits noted. Advance Directives: Currently, there is no health care proxy. There is no active DNR order. There is no living will. home support is adequate. Assessment: 18:44 General: see triage assessment. ead 19:23 Reassessment: Patient appears in no apparent distress at this time. Patient denies pain jp6 at this time. Patient states feeling better. Patient states symptoms have improved. General: Appears in no apparent distress, comfortable, well developed, well nourished, Behavior is appropriate for age, cooperative, pleasant. Pain: Denies pain. Neurological: No deficits noted. Level of Consciousness is awake, alert, Oriented to person, place, time. EENT: No deficits noted. Cardiovascular: No deficits noted. Capillary refill < 3 seconds Heart tones S1 S2 present Rhythm is sinus rhythm No ectopy. Respiratory: No deficits noted. Airway is patent Respiratory effort is even, unlabored, Respiratory pattern is regular, symmetrical, Breath sounds are clear bilaterally. GI: No deficits noted. : No deficits noted. Derm: Skin is intact, Skin is dry, Skin is brown, Skin temperature is warm. Musculoskeletal: No deficits noted. 20:30 Reassessment: Patient appears in no apparent distress at this time. Pain: Denies pain. jp6 Neurological: Level of Consciousness is awake, alert, Oriented to person, place, time. Cardiovascular: Rhythm is sinus rhythm No ectopy. Respiratory: Airway is patent Respiratory effort is even, unlabored, Respiratory pattern is regular, symmetrical. Derm: Skin is brown. 21:30 Reassessment: Patient appears in no apparent distress at this time. Patient states jp6 symptoms have improved. Pain: Denies pain. 22:30 Reassessment: Patient appears in no apparent distress at this time. Pain: Denies pain. jp6 Neurological: No deficits noted. EENT: No deficits noted. Cardiovascular: No deficits noted. Rhythm is sinus rhythm No ectopy. Respiratory: Airway is patent Respiratory effort is even, unlabored, Respiratory pattern is regular, symmetrical. GI: No deficits noted. : No deficits noted. Derm: Skin is brown. Musculoskeletal: No deficits noted. 23:30 Reassessment: Patient appears in no apparent distress at this time. jp6 06/05 00:30 Reassessment: Patient appears in no apparent distress at this time. Patient states jp6 symptoms have improved. General: Appears in no apparent distress, comfortable, Behavior is appropriate for age, cooperative. Pain: Denies pain. Neurological: No deficits noted. EENT: No deficits noted. Cardiovascular: Rhythm is sinus rhythm No ectopy. Respiratory: Breath sounds are clear bilaterally. Derm: Skin is brown. 01:30 Reassessment: Patient states symptoms have improved. Cardiovascular: Rhythm is sinus [facility] rhythm No ectopy. Respiratory: Airway is patent Respiratory effort is even, unlabored, Respiratory pattern is regular, symmetrical. 02:30 Reassessment: pt is going back to [facility],reportcalled to angi George RN.. General: Appears in no apparent distress, comfortable. Pain: Denies pain. Neurological: No deficits noted. EENT: No deficits noted. Cardiovascular: Rhythm is sinus rhythm No ectopy. Respiratory: No deficits noted. Airway is patent Respiratory effort is even, unlabored, Respiratory pattern is regular, symmetrical. GI: No deficits noted. : No deficits noted. Derm: Skin is brown. Musculoskeletal: No deficits noted. Vital Signs: 06/04 18:32 BP 150 / 92; Pulse 52; Resp 14; Temp 97.1; Pulse Ox 97% on R/A; Weight 78.02 kg (R); ead Height 5 ft. 5 in. (165.10 cm) (R); Pain 5/10; 19:04 BP 149 / 93 (auto/); jp6 19:04 Pulse 50 MON; Pulse Ox 98% ; jp6 19:34 BP 151 / 95 (auto/); jp6 19:34 Pulse 48 MON; Pulse Ox 98% ; jp6 20:03 Pulse 54 MON; Pulse Ox 98% ; jp6 20:04 BP 145 / 86 (auto/); jp6 20:34 BP 148 / 89 (auto/); jp6 20:34 Pulse 52 MON; Pulse Ox 99% ; jp6 21:04 BP 148 / 89 (auto/); jp6 21:04 Pulse 52 MON; Pulse Ox 98% ; jp6 21:34 BP 157 / 94 (auto/); jp6 21:34 Pulse 52 MON; Pulse Ox 99% ; jp6 22:21 BP 125 / 98 (auto/); jp6 22:23 Pulse 64 MON; jp6 22:34 BP 152 / 96 (auto/); jp6 22:34 Pulse 66 MON; jp6 23:04 BP 149 / 89 (auto/); jp6 23:04 Pulse 64 MON; jp6 23:34 BP 155 / 100 (auto/); jp6 23:34 Pulse 76 MON; jp6 06/05 00:04 BP 150 / 87 (auto/); jp6 00:04 Pulse 68 MON; jp6 00:34 BP 128 / 77 (auto/); jp6 00:52 Pulse 54 MON; Pulse Ox 98% ; jp6 01:02 Pulse 70 MON; Pulse Ox 97% ; jp6 01:04 BP 140 / 88 (auto/); jp6 01:34 BP 150 / 71 (auto/); jp6 01:34 Pulse 76 MON; jp6 02:04 BP 138 / 77 (auto/); jp6 02:04 Pulse 66 MON; jp6 02:16 Pulse 60 MON; jp6 02:16 BP 128 / 77; Pulse 60; Resp 16; Temp 98.2(O); Pulse Ox 98% on R/A; Pain 0/10; jp6 06/04 18:32 Body Mass Index 28.62 (78.02 kg, 165.10 cm) ead Vitals: 06/04 18:22 Log In Time N/A - ambulance arrival. ead ED Course: 18:23 Patient visited by Dagmar Winter, Advertising Solicitor. deg 18:23 Patient moved to Waiting deg 18:24 Francesca Givens,RN is Primary Nurse. deg 18:24 Patient moved to 3 deg 18:24 Patient moved to 10 ead 18:29 Triage Initiated ead 18:36 Maintain field IV. Dressing intact. Good blood return noted. Site clean & dry. Gauge & ead site: 20 left AC. 18:38 EKG done. (by ED staff). Reviewed by Radha Harris MD. jrd 18:44 Patient visited by Francesca Givens,RN. ead 18:44 Basic Metabolic Profile Sent. ead 18:44 CBC with Diff Sent. ead 18:44 Cardiac Injury Profile Sent. ead 18:44 Troponin Sent. ead 18:52 Radha Harris MD is Attending Physician. br1 18:52 Patient visited by Alfonzo Rock PCA. jrd 18:58 Patient visited by Radha Harris MD. br1 19:04 The patient / caregiver is instructed regarding the plan of care and ED course. Cardiac jp6 monitor on. Pulse ox on. NIBP on. 20:06 Patient visited by Vicky Ramsay,RN. jp6 21:33 Patient visited by Vicky Ramsay,RN. jp6 22:51 Patient visited by Vicky Ramsay,RN. jp6 22:58 [facility] Payment Agreement was scanned into [employer] and attached to record. zo 22:58 [facility] Payment Agreement was scanned into [employer] and attached to record. zo 23:03 Patient name changed from Vangie\S\\S\Hackshaw\S\ to Vangie\S\ \S\Hackshaw. EDMS 23:11 Patient moved to OBSERVATION br1 23:34 No procedures done that require assistance. jp6 23:37 CT Chest Angio R/O PE Returned. EDMS 06/05 00:08 Attending Physician role handed off by Radha Harris MD mm11 00:08 Carlitos Newman DO is Attending Physician. mm11 01:00 CARDIAC INJURY PROFILE Sent. jp6 01:00 TROPONIN Sent. jp6 01:17 ELECTROCARDIOGRAM ADULT Returned. EDMS 02:19 Your own Physician is Referral Physician. mm11 02:19 Reese Pinedo MD is Referral Physician. mm11 16:03 EKG-ADULT Returned. EDMS 19:43 Radiology Report was scanned into [employer] and attached to record. kf3 19:44 ECG/EKG was scanned into [employer] and attached to record. kf3 19:45 Trend VS was scanned into [employer] and attached to record. kf3 20:22 T-Sheet-- Draft Copy was scanned into [employer] and attached to record. klr 06/06 11:20 Chest, 1 View Returned. EDMS Administered Medications: 06/04 20:23 Drug: NS 0.9% 1000 ml [sodium chloride 0.9 % intravenous solution] Route: IV; Rate: 150 tm5 mL/hr; Site: left antecubital; Attachments: 19:45 Trend VS kf3 Intake: 02:16 PO: 300.00ml; IV: 500.00ml; Total: 800.00ml. jp6 Output: 02:16 Urine: 3.00ml (Voided); Total: 3.00ml. jp6 Order Results: Lab Order: Basic Metabolic Profile; SIMÓN'M 06/04/16 18:43 Test: GLUCOSE, FASTING; Value: 80; Range: 70-105; Units: MG/DL; Status: F Test: BLOOD UREA NITROGEN; Value: 11; Range: 7-18; Units: MG/DL; Status: F Test: CREATININE FOR GFR; Value: 0.95; Range: 0.70-1.30; Units: MG/DL; Status: F Test: GLOMERULAR FILTRATION RATE; Value: > 60.0; Range: >60; Status: F Test: SODIUM LEVEL; Value: 142; Range: 136-145; Units: MEQ/L; Status: F Test: POTASSIUM SERUM; Value: 3.9; Range: 3.5-5.1; Units: MEQ/L; Status: F Test: CHLORIDE LEVEL; Value: 107; Range: 98-107; Units: MEQ/L; Status: F Test: CARBON DIOXIDE LEVEL; Value: 30; Range: 21-32; Units: MEQ/L; Status: F Test: ANION GAP; Value: 5; Range: 8-16; Abnormal: Below low normal; Units: MEQ/L; Status: F Test: CALCIUM LEVEL; Value: 8.8; Range: 8.5-10.1; Units: MG/DL; Status: F Test Note: ; Units are mL/min/1.73 m2 Chronic Kidney Disease Staging per NKF: Stage I & II GFR >=60 Normal to Mildly Decreased Stage III GFR 30-59 Moderately Decreased Stage IV GFR 15-29 Severely Decreased Stage V GFR <15 Very Little GFR Left ESRD GFR <15 on EVENT LIGHTING SPECIALIST Lab Order: CBC with Diff; SPEC'M 06/04/16 18:43 Test: WHITE BLOOD COUNT; Value: 6.0; Range: 4.0-10.0; Units: K/mm3; Status: F Test: RED BLOOD COUNT; Value: 4.84; Range: 4.30-6.10; Units: M/mm3; Status: F Test: HEMOGLOBIN; Value: 13.2; Range: 14.0-18.0; Abnormal: Below low normal; Units: g/dl; Status: F Test: HEMATOCRIT; Value: 41.0; Range: 42.0-52.0; Abnormal: Below low normal; Units: %; Status: F Test: MEAN CORPUSCULAR VOLUME; Value: 84.6; Range: 80.0-96.0; Units: fl; Status: F Test: MEAN CORPUSCULAR HEMOGLOBIN; Value: 27.3; Range: 27.0-33.0; Units: pg; Status: F Test: MEAN CORPUSCULAR HGB CONC; Value: 32.2; Range: 32.0-36.5; Units: g/dl; Status: F Test: RED CELL DISTRIBUTION WIDTH; Value: 12.7; Range: 11.5-14.5; Units: %; Status: F Test: PLATELET COUNT, AUTOMATED; Value: 203; Range: 150-450; Units: k/mm3; Status: F Test: NEUTROPHILS %; Value: 62.8; Range: 36.0-66.0; Units: %; Status: F Test: LYMPH %; Value: 27.5; Range: 24.0-44.0; Units: %; Status: F Test: MONO %; Value: 4.6; Range: 0.0-5.0; Units: %; Status: F Test: EOS %; Value: 2.4; Range: 0.0-3.0; Units: %; Status: F Test: BASO %; Value: 0.4; Range: 0.0-1.0; Units: %; Status: F Test: LARGE UNSTAINED CELL %; Value: 2.4; Range: 0.0-4.0; Units: %; Status: F Test: NEUTROPHILS #; Value: 3.7; Range: 1.8-7.7; Units: K/mm3; Status: F Test: LYMPH #; Value: 1.6; Range: 1.5-4.5; Units: K/mm3; Status: F Test: MONO #; Value: 0.3; Range: 0.0-0.8; Units: K/mm3; Status: F Test: EOS #; Value: 0.1; Range: 0.0-0.50; Units: K/mm3; Status: F Test: BASO #; Value: 0.0; Range: 0.0-0.2; Units: K/mm3; Status: F Test: LARGE UNSTAINED CELL #; Value: 0.1; Range: 0.0-0.4; Units: K/mm3; Status: F Lab Order: Cardiac Injury Profile; [facility] 06/04/16 18:43 Test: CPK CREATINE PHOSPHOKINASE; Value: 348; Range: 39-308; Abnormal: Above high normal; Units: U/L; Status: F Test: CK-MB VALUE MASS; Value: 6.1; Range: 0.0-3.6; Abnormal: Above high normal; Units: NG/ML; Status: F Test: MB/CK RELATIVE INDEX; Value: 1.75; Range: < OR =4; Status: F Test Note: ; DIAGNOSIS CRITERIA MMB ng/ml Relative Index (RI) NON-AMI < or = 5 N/A [place] > 5 < or = 4 AMI > 5 > 4 Lab Order: Troponin; [facility] 06/04/16 18:43 Test: TROPONIN I; Value: < 0.02; Range: < 0.10; Units: NG/ML; Status: F Test Note: ; Troponin I Reference Interval for [place] LOCI: 99th Percentile= 0.00-0.045 ng/ml Risk Stratification: <= 0.10 ng/ml Decreased Risk for Adverse Clinical Events. 0.10-1.50 ng/ml Increased Risk for Adverse Clinical Events. Evaluation of additional criterion and/or repeat testing in 2-6 hours is suggested to rule out myocardial damage. >= 1.50 ng/ml Indicative of Myocardial Injury. Lab Order: TROPONIN; [facility] 06/05/16 00:53 Test: TROPONIN I; Value: < 0.02; Range: < 0.10; Units: NG/ML; Status: F Test Note: ; Troponin I Reference Interval for [employer]ens [place] LOCI: 99th Percentile= 0.00-0.045 ng/ml Risk Stratification: <= 0.10 ng/ml Decreased Risk for Adverse Clinical Events. 0.10-1.50 ng/ml Increased Risk for Adverse Clinical Events. Evaluation of additional criterion and/or repeat testing in 2-6 hours is suggested to rule out myocardial damage. >= 1.50 ng/ml Indicative of Myocardial Injury. Lab Order: CARDIAC INJURY PROFILE; SPEC'M 06/05/16 00:53 Test: CPK CREATINE PHOSPHOKINASE; Value: 316; Range: 39-308; Abnormal: Above high normal; Units: U/L; Status: F Test: CK-MB VALUE MASS; Value: 4.9; Range: 0.0-3.6; Abnormal: Above high normal; Units: NG/ML; Status: F Test: MB/CK RELATIVE INDEX; Value: 1.55; Range: < OR =4; Status: F Test Note: ; DIAGNOSIS CRITERIA MMB ng/ml Relative Index (RI) NON-AMI < or = 5 N/A [place] > 5 < or = 4 AMI > 5 > 4 Radiology Order: EKG-ADULT Test: EKG-ADULT REASON FOR EXAMINATION: Chest Pain; Stationary ECG Study; [facility] - ED; ; Test Date: 2016-06-04; Pat Name: VANGIE WARREN Department:; Room: -; Gender: M 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 Cardiac size appears enlarged, however there has; magnification from portable positioning.; ; The baudilio, mediastinum, and bony thorax are unremarkable.; ; Impression: The cardiac size appears enlarged. The lung pate are clear.; ; ; Signed by; Julien Renteria MD 06/05/2016 11:13 A; Radiology Order: CT Chest Angio R/O PE Test: CT Chest Angio R/O PE REASON FOR EXAMINATION: Chest Pain; ; CLINICAL HISTORY: Chest pain.; ; TECHNIQUE: CT chest with IV contrast.; ; COMPARISON: No pertinent prior studies are available at this time.; ; CT CHEST WITH CONTRAST:; Pulmonary arteries: Patent, without emboli.; Lungs: No pneumothorax, infiltrate, masses or effusion.; Heart: Normal size. No significant effusion.; Aorta: Normal caliber, without aneurysm or dissection.; Mediastinum and baudilio: No lymphadenopathy.; Bony thorax: No acute findings.; Limited upper abdomen: No acute findings.; IMPRESSION: No evidence of pulmonary embolism. No acute thoracic process.; ; Radiology Order: ELECTROCARDIOGRAM ADULT Test: ELECTROCARDIOGRAM ADULT REASON FOR EXAMINATION: REPEAT; Stationary ECG Study; [facility]; ; Test Date: 2016-06-05; Pat Name: VANGIE WARREN Department:; Room: -; Gender: Cross Enterprise Integrator: iggy; : 1980 Requested By: RADHA Snyder; Order Number: [id number] Chris MD: Reese Pinedo; Measurements; Intervals [place]; Rate: 62 P: 50; MA: 189 QRS: 43; QRSD: 93 T: 18; QT: 389; QTc: 397; Interpretive Statements; SINUS RHYTHM WITH SINUS ARRHYTHMIA; Minimal repolarization abnormality; No prior tracing in the system; Electronically Signed On 06-05-2016 1:05:40 EST by Reese Pinedo; Outcome: 02:16 Discharge Assessment: Patient awake, alert and oriented x 3. No cognitive and/or jp6 functional deficits noted. Patient verbalized understanding of disposition instructions. patient administered narcotics - no. The following High Risk Discharge criteria are identified: None. Discharged to [facility]. Condition: stable Condition: improved. Discharge instructions given to Doris TORREZ at facility. CT Study completed. Property :Personal belongings accompany Pt. 02:19 Discharge ordered by Provider. mm11 02:43 Patient left the ED. jp6 Signatures: Dispatcher [employer] EDMS Dagmar Winter, Advertising Solicitor Unit deg Darline Moeller Matthew, DO mm11 Anatoly Moses, Reg Reg kf3 Radha Harris MD MD br1 Francesca Givens,RN RN Alfonzo Lopez PCA PCA jrd Palmer, Jessica,LORE RN jp6 Yudi Jose Tonya,RN RN tm5 Chart Complete RUFINA
== END 2016-06-05 02:15 | disposition home or self-care (01) ==
LOC: M ED 18:22
DX: R07.9 Chest pain, unspecified (principal); R06.02 Shortness of breath; I10 Essential (primary) hypertension; I51.7 Cardiomegaly; Z79.899 Other long term (current) drug therapy; F17.210 Nicotine dependence, cigarettes, uncomplicated
CPT/HCPCS: 36415; 71010; 71275; 80048; 82550; 82553; 85025; 93005; 93041; 99285; Q9967